=== PATIENT | male | born 1960 | race Caucasian/White ===

== ENCOUNTER 2018-07-13 08:45 | Emergency (ER) | payer MEDICARE, BC ==
[~2018-07-13] VITALS: Ht 172.7 cm; Wt 85.3 kg
[~2018-07-13 08:45] MED LIST: AMLODIPINE BESY10 MG PO; ANTACID650 MG PO; ASPIR 8181 M1 PO; CODEINE-GUAIFE120 ML PO; COZAAR 50 MG TA50 M2 PO; CVS OMEGA-3 KR1 EACH PO; EASY-LAX100 MG PO; EPOGEN2000 UNIT/ SUBQ; ERGOCALCIF50000 UNIT PO; HI B COMPLEX1 EACH PO; IRON325 PO; LASIX 40 MG TAB40 M2 PO; LEVAQUIN 500 M500 M2 PO; LOPRESSOR50 PO; LOSARTAN-HCTZ1 EAC1 PO; METHYLPREDNISOLO4 M1 PO; NORCO 5-325 TA1 EACH PO; PHOSLO667 M1 PO; RENAL CAPS SOFTG1 MG PO; TRIPHROCAPS SOFT1 MG PO; VENTOLIN HFA 1818 GM INH; VITAMIN D 5050000 I1 PO; XANAX 0.5 MG0.5 MG PO
[2018-07-13] MEDS ORDERED: RENAL VITAMIN (08:56)
[2018-07-13 10:14] LABS: ABSOLUTE EOSINOPHILS 0.5 thou/uL (0.0-0.7); ABSOLUTE LYMPHOCYTES 2.4 thou/uL (0.8-5.3); ABSOLUTE MONOCYTES 0.6 thou/uL (0.0-1.2); BASOPHILS 0.6 %; EOSINOPHILS 7.7 %; HEMATOCRIT 31.9 % (42.0-52.0); HEMOGLOBIN 10.8 gm/dL (14.0-18.0); LYMPHOCYTES 36.2 %; MCH 32.8 pg (26.0-34.0); MCHC 33.8 g/dL (28.0-37.0); MONOCYTES 9.7 %; MPV 8.3 fl. (7.2-11.1); NUCLEATED RBCS 0 /100WBC; PLATELET COUNT* 149 thou/uL (150-400); POLYS 45.8 %; RBC 3.28 mil/uL (4.50-6.00); RDW-CV 15.7 % (10.5-14.5); WBC 6.5 thou/uL (4.0-11.0)
[2018-07-13 10:22] LABS: APTT 25.9 Seconds (25.0-31.3)
[2018-07-13 10:35] LABS: CALCIUM 8.5 mg/dL (8.5-10.1); CREATININE 13.4 mg/dL (0.6-1.3); POTASSIUM 5.2 mmol/L (3.5-5.1)
[2018-07-13 10:39] LABS: ALBUMIN 3.7 g/dL (3.4-5.0); TOTAL BILIRUBIN 0.6 mg/dL (<0.1-1.0); TOTAL PROTEIN 7.5 g/dL (6.4-8.2)
[2018-07-13 11:59] VITALS: BP 129/68
--- NOTE | 2018-07-13 15:40 | EKG ---
[place] [address] ELECTROCARDIOGRAM REPORT Name: AMAURY FLOR [id number] Admission: 07/13/18 Attend Phys: Discharge: 07/13/18 Date of : 56 Report #: [id number] THIS REPORT FOR: //name// [facility] ED Test Date: 2018-07-13 Test Time: 10:01:53 Pat Name: AMAURY FLOR Department: Room: Gender: M Deliverer Outside: PREMA : 1960 Requested By: Shalom Westfall Order Number: [id number] MD: Jeffry Arriaza Measurements Intervals [place] Rate: 52 P: 24 OR: 158 QRS: 24 QRSD: 104 T: 114 QT: 508 QTc: 473 Interpretive Statements Sinus bradycardia Posterior infarct, old Nonspecific T abnormalities, lateral leads Compared to ECG 12/05/2015 10:12:25 rate slowed Electronically Signed On 07-13-2018 15:40:16 CDT by Jeffry Arriaza [email or web address] <ELECTRONICALLY SIGNED> By: Jeffry Arriaza MD, [facility] 07/13/18 1540 100 00 Jeffry Arriaza MD, FACC /EPI
--- NOTE | 2018-07-16 19:39 | OP ---
[address] [address] OPERATIVE REPORT Name: CHACHOAMAURY Room: [facility] Alex#: [id number] Admission: 07/13/18 Attend Phys: Discharge: 07/13/18 Date of : 56 Report #: [id number] THIS REPORT FOR: //name// CC: Shalom Ramirez DATE OF SERVICE: 07/13/2018 PREOPERATIVE DIAGNOSIS: End-stage renal disease with thrombosed arteriovenous fistula. POSTOPERATIVE DIAGNOSIS: End-stage renal disease with thrombosed arteriovenous fistula. OPERATION: 1. Ultrasound-guided access to right internal jugular vein. 2. Tunneled dialysis catheter placement. SURGEON: Bc Ballard DO. POPULATION HEALTH MANAGER: CORAZON Shook. ANESTHESIA: Sedation local. ESTIMATED BLOOD LOSS: 25 mL. FLUIDS: Less than 100 crystalloid. URINE OUTPUT: None. SPECIMENS: None. IMPLANTS: A Bard RetrO 19 cm tunneled dialysis catheter in the right IJ. FINDINGS: Right internal jugular vein was soft and compressible, suitable for access. Catheter was positioned with the tip at the right atrium SVC junction, aspirated and flushed well without issue. CLINICAL HISTORY: The patient is a 57-year-old man with known end-stage renal disease. He has had multiple interventions on his arteriovenous fistula. This ultimately thrombosed. It was felt to be not salvageable at this point, recommended proceeding with a tunneled dialysis catheter placement and then outpatient followup for potential future access. DESCRIPTION OF PROCEDURE: After informed consent was obtained, the patient was taken to angio suite, placed on the angio bed in supine position. His right [facility] [address] [place] [address] OPERATIVE REPORT Name: AMAURY FLOR Room: [facility]#: [id number] Admission: 07/13/18 Attend Phys: Discharge: 07/13/18 Date of : 56 Report #: [id number] neck was prepped and draped in usual sterile fashion. Full timeout was performed identifying correct patient and procedure. Using ultrasound guidance, right internal jugular vein was identified, was accessed with an 18 gauge needle. These images were preserved. Using Seldinger technique, a wire was placed through the needle under fluoroscopic guidance into the IVC. A small skin incision was made in the right neck. The introducer was then passed over the wire and a second wire was passed under fluoroscopic guidance in the IVC. The tract was then serially dilated and then the catheter was passed over the wire, given the tip at the right atrium SVC junction. I then tunneled the catheter in the right chest wall after anesthetizing with lidocaine anesthetic and making a small skin incision in the chest. The catheter was then tailored to length. Both ports were applied. Both ports aspirated and flushed well without issue. Both ports were packed with concentrated heparin. The catheter was then secured to the chest wall with 3-0 Monocryl suture and the neck incision was closed with 3-0 Monocryl suture and sterile dressings were applied. All sponge, sharp instrument counts reported correct x 2. He tolerated the procedure well and was transferred to recovery in stable condition. The catheter may be used immediately for dialysis needs. <ELECTRONICALLY SIGNED> By: Bc Ballard DO 07/16/18 [id number] 1840Bc Ballard DO /nt
== END 2018-07-13 12:00 | disposition still patient (30) ==
LOC: M.ERS 08:45
PROVIDERS: Family Medicine
DX: T82.598A Other mechanical complication of other cardiac and vascular devices and implants, initial encounter (principal); I10 Essential (primary) hypertension; F41.9 Anxiety disorder, unspecified; Z98.890 Other specified postprocedural states; Z91.041 Radiographic dye allergy status; Z91.048 Other nonmedicinal substance allergy status; Z88.8 Allergy status to other drugs, medicaments and biological substances

== ENCOUNTER → 2018-07-29 | Day surgery (SDC) | payer MEDICARE, BC ==
[~2018-07-29] MED LIST changes: +NORCO 5-325 TA1 EAC1 PO; +RENAL VITAMIN
[2018-07-29 06:41] LABS: HEMOGLOBIN 12.1 gm/dL (14.0-18.0); MCH 31.9 pg (26.0-34.0); MCHC 32.7 g/dL (28.0-37.0); MCV 97.4 fL (80.0-100.0); MPV 8.7 fl. (7.2-11.1); RBC 3.8 mil/uL (4.50-6.00); WBC 7.9 thou/uL (4.0-11.0)
[2018-07-29 06:52] LABS: CALCIUM 9.3 mg/dL (8.5-10.1); CREATININE 8.3 mg/dL (0.6-1.3); POTASSIUM 4.5 mmol/L (3.5-5.1)
--- NOTE | 2018-07-29 11:26 | OP ---
[address] [address] OPERATIVE REPORT Name: AMAURY FLOR Room: [facility]#: [id number] Admission: 07/29/18 Attend Phys: Bc Ballard DO Discharge: Date of : 56 Report #: [id number] THIS REPORT FOR: //name// CC: Bc Ramirez DATE OF SERVICE: 07/29/2018 PREOPERATIVE DIAGNOSIS: End-stage renal disease. POSTOPERATIVE DIAGNOSIS: End-stage renal disease. OPERATION: Creation of left radiocephalic arteriovenous fistula. SURGEON: Bc Ballard DO. FLAG DECORATOR: HAYES Michel. ANESTHESIA: LMA. ESTIMATED BLOOD LOSS: 25 mL. FLUIDS: See anesthesia report. URINE OUTPUT: None. SPECIMENS: None. COMPLICATIONS: None. FINDINGS: Cephalic vein at the wrist dilated up to 4 mm in the forearm. His radial artery is small, but did dilate up to easily 2 mm. He had a good thrill within the fistula at the conclusion of the procedure. CLINICAL HISTORY: The patient is a 57-year-old man with end-stage renal disease, currently dialyzing through right IJ tunneled dialysis catheter. He had a previous right radiocephalic fistula that has undergone multiple interventions and is no longer salvageable. He has no other right upper arm options, brought in today for left upper extremity fistula creation. Based on his vein mapping in the OR, scanning with the ultrasound and his left forearm cephalic vein appeared to be adequate for a fistula creation. DETAILS OF THE PROCEDURE: After informed consent was obtained, the patient was taken to the operating room and placed on the OR bed in the supine position, he was administered LMA anesthesia by anesthesia team. Left upper extremity was prepped and draped in usual sterile fashion. Full timeout was performed [address] [address] OPERATIVE REPORT Name: AMAURY FLOR [facility] [id number] Admission: 07/29/18 Attend Phys: Bc Ballard DO Discharge: Date of : 56 Report #: [id number] identifying correct patient and procedure. I made a longitudinal incision down by the wrist. Dissection was carried down through skin and subcutaneous tissues, both sharp and electrocautery. Cephalic vein was identified. It was circumferentially mobilized. Side branches were ligated and divided between 3-0 silk ties. I then dissected out the radial artery, controlled with Silastic vessel loops in Villalobos fashion. I administered 5000 units of intravenous heparin. I transected the cephalic vein distally and ligated the stump with a silk suture ligature. I dilated the vein up to 4 mm without resistance. I flushed it and marked it to prevent axial rotation and spatulated vein conway, occluded the radial artery, made a longitudinal arteriotomy extended the Villalobos scissors, then performed end-to-side anastomosis of the cephalic vein and the radial artery with running 7-0 Prolene suture. Prior to completion of the suture line, the artery was allowed to fore and backbleed, flushed with heparinized saline and restored flow first up the fistula and distally to the hand. I had good Doppler flow in the radial artery distal to the anastomosis that augmented with fistula compression. He had a good bruit within the fistula auscultated with the Doppler in the mid forearm that augmented with compression as well. Once hemostasis was ensured, the wound was irrigated with antibiotic solution and was closed in layers with 3-0 Vicryl and 4-0 Monocryl in the skin and Dermabond was applied. All sponge, sharp instrument counts reported as correct x 2. He tolerated the procedure well and was transferred to recovery in stable condition. <ELECTRONICALLY SIGNED> By: Bc Ballard DO 07/29/18 1126 1007 [id number] Ballard DO /nt
--- NOTE | 2018-07-29 14:11 | EKG ---
[place] [address] ELECTROCARDIOGRAM REPORT Name: AMAURY FLOR Room: [facility]#: [id number] Admission: 07/29/18 Attend Phys: Bc Ballard DO Discharge: Date of : 56 Report #: [id number] THIS REPORT FOR: //name// [facility] Test Date: 2018-07-29 Test Time: 07:14:44 Pat Name: AMAURY FLOR Department: Room: Gender: M Diagnostic Radiologist: JULIAN : 1960 Requested By: Bc Ballard Order Number: [id number] Reading MD: Jeffry Arriaza Measurements Intervals [place] Rate: 76 P: 39 MO: 155 QRS: -86 QRSD: 95 T: 91 QT: 413 QTc: 465 Interpretive Statements Sinus rhythm Left anterior fascicular block Consider RVH or posterior infarct Compared to ECG 07/13/2018 10:01:53 Sinus bradycardia no longer present Electronically Signed On 07-29-2018 14:10:51 CDT by Jeffry Arriaza [email or web address] <ELECTRONICALLY SIGNED> By: Jeffry Arriaza MD, [facility] 07/29/18 1410 3 3 Jeffry Arriaza MD, FACC /EPI
== END | disposition home or self-care (01) ==
LOC: M.SUR 05:52
PROVIDERS: Surgery
DX: I12.0 Hypertensive chronic kidney disease with stage 5 chronic kidney disease or end stage renal disease (principal); N18.6 End stage renal disease; I50.9 Heart failure, unspecified; D64.9 Anemia, unspecified; Z88.8 Allergy status to other drugs, medicaments and biological substances; Z79.82 Long term (current) use of aspirin; Z79.899 Other long term (current) drug therapy

== ENCOUNTER → 2019-03-02 | Outpatient (CLI) | payer MEDICARE, BC ==
[2019-03-02 08:17] LABS: HEMATOCRIT 31.7 % (42.0-52.0); HEMOGLOBIN 10.9 gm/dL (14.0-18.0)
== END ==
LOC: M.LAB 04:06
PROVIDERS: Anesthesiology
DX: E87.6 Hypokalemia (principal); N17.9 Acute kidney failure, unspecified